=== PATIENT | male | born 1985 | race Caucasian/White ===

== ENCOUNTER → 2017-07-10 11:18 | Outpatient (CLI) | payer BC, SELFPAY ==
--- NOTE | 2017-07-10 11:27 | XR_ITS ---
XR chest 2V HISTORY: ITS.REASON: BRONCHITIS ORDERING PHYSICIAN: Luz Yee PATIENT AGE: 32 years COMPARISON: None available FINDINGS: The cardiomediastinal silhouette and pulmonary vascularity are within normal limits. The lungs are clear without infiltrates, suspicious nodules, or pleural effusions. No acute bony abnormalities. IMPRESSION: Negative chest, no acute finding
== END ==
PROVIDERS: PCP Family Medicine; Visit Provider Nurse Practitioner
DX: J40 Bronchitis, not specified as acute or chronic (principal)
CPT/HCPCS: 71046

== ENCOUNTER → 2020-07-04 17:54 | Outpatient (CLI) | payer OTHER, SELFPAY ==
--- NOTE | 2020-07-04 | XR_ITS ---
PROCEDURE: XR HAND LT MIN 3V CLINICAL INDICATION: COMPARISON: No exams were available for comparison FINDINGS: No fracture or dislocation. No lytic or blastic change. There is normal mineralization. The joint spaces are well-preserved. No significant degenerative/arthritic changes. No erosive changes evident. Other findings:None. IMPRESSION: No acute findings. Dictated by: Michael Gallegos MD 07/04/2020 18:36 Michael Gallegos MD in [place] 07/04/2020 18:36
== END ==
PROVIDERS: PCP Family Medicine; Visit Provider Family Medicine
DX: M79.645 Pain in left finger(s) (principal)
CPT/HCPCS: 73130

== ENCOUNTER → 2022-08-06 23:31 | Outpatient (CLI) | payer OTHER, SELFPAY ==
[2022-08-06 19:37] LABS: Basophils # 0.2 K/mm3 (0-0.2); Basophils % 1.6 % (0.1-2.0); Eosinophils # 0.2 K/mm3 (0.0-0.4); Eosinophils % 2.4 % (0.1-12.0); Hematocrit 44.3 % (42.0-52.0); Lymphocytes # 1.6 K/mm3 (0.7-4.5); Lymphocytes % 16.5 % (10-50); Mean Corpuscular Hemoglobin 30.5 pg (27.0-31.2); Mean Corpuscular Volume 89.6 fl (80-94); Mean Platelet Volume 8.5 fl (7.4-10.4); Monocytes # 0.7 K/mm3 (0.1-1.0); Monocytes % 6.5 % (1.7-9.3); Neutrophils # 7.2 K/mm3 (1.8-7.8); Platelet Count 359 K/mm3 (142-424); Red Blood Count 4.94 M/mm3 (4.60-6.20); Red Cell Distribution Width 13.1 % (11.5-17.5); White Blood Count 9.9 K/mm3 (4.8-10.8)
[2022-08-06 19:39] LABS: Alanine Aminotransferase 30 U/L (12-78); Albumin Level 4.6 g/dl (3.5-5.0); Albumin/Globulin Ratio 1.4 (1.1-1.8); Alkaline Phosphatase 65 U/L (38-126); Anion Gap 9.9 mEq/L (5-15); Aspartate Amino Transferase 38 U/L (17-59); Bilirubin,Total 1.1 mg/dl (0.2-1.3); Blood Urea Nitrogen 11 mg/dl (9-20); Calcium 9.2 mg/dl (8.4-10.2); Carbon Dioxide 25 mmol/L (22.0-30.0); Chloride 108 mmol/L (98-107); Chol/HDL Ratio 5.1 (1-3.5); Cholesterol 215 mg/dl (140-200); Estimated Glomerular Filt Rate 108 ml/min (>60); GFR (African American) 130 ML/MIN (>60); Globulin 3.2 g/dL (1.3-3.2); Glucose 133 mg/dl (74-100); HDL Cholesterol 42 mg/dl (40-60); Potassium 3.9 mmoL/L (3.5-5.1); Sodium 139 mmol/L (136-145); Total Protein,Serum 7.8 g/dl (6.3-8.2); Triglycerides 112 mg/dl (30-150); VLDL Cholesterol 22 mg/dL (0-40)
[2022-08-06 19:50] LABS: Direct LDL Cholesterol 145.58 mg/dL (100-129)
[2022-08-06 19:57] LABS: 25-OH Vitamin D, Total 16.6 ng/mL (30-100)
[2022-08-06 20:10] LABS: Thyroid Stimulating Hormone 0.67 uIU/mL (0.465-4.68)
[2022-08-06 20:13] LABS: Hemoglobin A1C 5.8 % (4.0-6.0)
[2022-08-06 20:29] LABS: Vitamin B12 414 pg/mL (239-931)
== END ==
PROVIDERS: PCP Nurse Practitioner; Visit Provider Nurse Practitioner
DX: F41.9 Anxiety disorder, unspecified (principal); E55.9 Vitamin D deficiency, unspecified; Z79.899 Other long term (current) drug therapy
CPT/HCPCS: 80053; 80061; 82306; 82607; 83036; 84443; 85025

== ENCOUNTER → 2022-09-13 11:51 | Outpatient (CLI) | payer OTHER, SELFPAY | PROVIDERS: PCP Nurse Practitioner; Visit Provider Nurse Practitioner | DX: G47.33 Obstructive sleep apnea (adult) (pediatric) (principal); R40.0 Somnolence; G47.9 Sleep disorder, unspecified | CPT/HCPCS: 95806 ==

== ENCOUNTER → 2022-10-04 14:37 | Outpatient (CLI) | payer OTHER, SELFPAY | PROVIDERS: PCP Nurse Practitioner; Visit Provider Nurse Practitioner | DX: I49.9 Cardiac arrhythmia, unspecified (principal) | CPT/HCPCS: 93225; 93226 ==

== ENCOUNTER → 2022-11-19 19:47 | Outpatient (CLI) | payer OTHER, SELFPAY ==
[2022-11-19 20:28] LABS: Alanine Aminotransferase 26 U/L (12-78); Albumin Level 4.7 g/dl (3.5-5.0); Albumin/Globulin Ratio 1.4 (1.1-1.8); Alkaline Phosphatase 66 U/L (38-126); Anion Gap 19.1 mEq/L (5-15); Aspartate Amino Transferase 37 U/L (17-59); Bilirubin,Total 0.7 mg/dl (0.2-1.3); Blood Urea Nitrogen 19 mg/dl (9-20); Calcium 9.1 mg/dl (8.4-10.2); Carbon Dioxide 26 mmol/L (22.0-30.0); Chloride 100 mmol/L (98-107); Chol/HDL Ratio 6.3 (1-3.5); Cholesterol 297 mg/dl (140-200); Estimated Glomerular Filt Rate 94 ml/min (>60); GFR (African American) 114 ML/MIN (>60); Globulin 3.3 g/dL (1.3-3.2); Glucose 118 mg/dl (74-100); HDL Cholesterol 47 mg/dl (40-60); Potassium 4.1 mmoL/L (3.5-5.1); Sodium 141 mmol/L (136-145); Triglycerides 174 mg/dl (30-150); VLDL Cholesterol 35 mg/dL (0-40)
[2022-11-20 00:10] LABS: Hemoglobin A1C 5.7 % (4.0-6.0)
[2022-11-20 12:22] LABS: Ferritin 101 ng/ml (17.9-464)
== END ==
PROVIDERS: Nurse Practitioner Family; PCP Nurse Practitioner; Visit Provider Nurse Practitioner
DX: E55.9 Vitamin D deficiency, unspecified (principal); E78.5 Hyperlipidemia, unspecified; R73.01 Impaired fasting glucose; E83.10 Disorder of iron metabolism, unspecified
CPT/HCPCS: 80053; 80061; 82306; 82728; 83036

== ENCOUNTER → 2022-11-22 13:02 | Outpatient (CLI) | payer OTHER, SELFPAY | PROVIDERS: PCP Nurse Practitioner; Visit Provider Nurse Practitioner | DX: I49.9 Cardiac arrhythmia, unspecified (principal); R94.31 Abnormal electrocardiogram [ECG] [EKG]; E66.9 Obesity, unspecified; Z68.28 Body mass index [BMI] 28.0-28.9, adult | CPT/HCPCS: 93306 ==

== ENCOUNTER → 2023-03-29 08:04 | Outpatient (CLI) | payer OTHER, SELFPAY ==
[2023-03-29 18:26] LABS: Free T4 (Free Thyroxine) 1.27 ng/dl (0.78-2.19)
[2023-03-29 18:41] LABS: Thyroid Stimulating Hormone 0.95 uIU/mL (0.465-4.68)
== END ==
PROVIDERS: PCP Nurse Practitioner Acute Care; Visit Provider Nurse Practitioner Acute Care
DX: E66.3 Overweight (principal); Z79.899 Other long term (current) drug therapy
CPT/HCPCS: 84439; 84443

== ENCOUNTER 2023-07-18 22:12 | Outpatient (CLI) | payer OTHER, SELFPAY ==
[2023-07-20 10:56] LABS: Rapid Plasma Reagin Ab Titer Non Reactive titer (NonRea<1:1)
[2023-07-20 12:20] LABS: HBsAg Screen Negative (Negative); HCV Ab Non Reactive (Non Reactive); Hep A Ab, IGM Negative (Negative); Hep B Core Ab, IgM Negative (Negative)
[2023-07-21 04:11] LABS: HIV Screen 4th Generation wRfx Non Reactive (Non Reactive)
[2023-07-23 20:56] LABS: Neisseria gonorrhoeae, NAA Negative (Negative)
[2023-07-25 12:07] LABS: HSV 1 IgG, Type Spec <0.91
[2023-07-25 12:10] LABS: HSV 2 IgG, Type Spec <0.91
[2023-07-29 14:33] LABS: Trich vag NAA NEGATIVE
== END 2023-07-18 23:59 ==
LOC: LAB.DROPOF 22:13
PROVIDERS: PCP Nurse Practitioner; Visit Provider Nurse Practitioner
DX: Z11.3 Encounter for screening for infections with a predominantly sexual mode of transmission (principal); Z11.4 Encounter for screening for human immunodeficiency virus [HIV]; Z72.51 High risk heterosexual behavior
CPT/HCPCS: 80074; 86593; 86695; 86703; 86790; 87491; 87591; 87661; G0432

== ENCOUNTER 2023-10-15 10:10 | Outpatient (CLI) | payer OTHER, SELFPAY ==
--- NOTE | 2023-10-15 10:14 | XR_ITS ---
FINAL REPORT CLINICAL HISTORY: lt hand pain x few weeks FINDINGS: Left hand Three views were obtained. There is no acute fracture or dislocation. The joint spaces appear normal. No soft tissue abnormality is identified. IMPRESSION: No acute process. Reviewed, Interpreted and Dictated by Ld De Guzman III, MD Transcribed by Irene Moore Authenticated and . [facility]
== END 2023-10-15 23:59 | disposition home or self-care (01) ==
PROVIDERS: PCP Nurse Practitioner; Visit Provider Orthopaedic Surgery
DX: M79.642 Pain in left hand (principal)
CPT/HCPCS: 73130

== ENCOUNTER 2024-04-17 11:35 | Outpatient (CLI) | payer OTHER, SELFPAY ==
[2024-04-17 21:48] LABS: HIV (1&2) Antibody Rapid NONREACTIVE (NONREACTIVE)
[2024-04-19 08:39] LABS: HBsAg Screen Negative (Negative); HCV Ab Non Reactive (Non Reactive); Hep A Ab, IGM Negative (Negative); Hep B Core Ab, IgM Negative (Negative); Rapid Plasma Reagin Ab Titer Non Reactive titer (NonRea<1:1)
[2024-04-20 20:09] LABS: Neisseria gonorrhoeae, NAA Negative (Negative); Trichomonas Vaginalis, NAA Negative (Negative)
[2024-04-22 07:54] LABS: HSV-1 DNA Negative (Negative); HSV-2 DNA Negative (Negative)
== END 2024-04-17 23:59 | disposition home or self-care (01) ==
LOC: LAB.DROPOF 04-18 09:32
PROVIDERS: PCP Nurse Practitioner; Visit Provider Nurse Practitioner Family
DX: Z11.3 Encounter for screening for infections with a predominantly sexual mode of transmission (principal); E66.3 Overweight; Z91.89 Other specified personal risk factors, not elsewhere classified
CPT/HCPCS: 80074; 86593; 87389; 87491; 87529; 87591; 87661

== ENCOUNTER 2024-07-23 17:05 | Outpatient (CLI) | payer OTHER, SELFPAY ==
--- NOTE | 2024-07-23 17:16 | XR_ITS ---
PROCEDURE INFORMATION: Exam: XR Right Shoulder Exam date and time: 07/23/2024 5:23 PM Age: 39 years old Clinical indication: Pain; Shoulder; Right; Additional info: Right shoulder pain TECHNIQUE: Imaging protocol: Radiologic exam of the right shoulder. Views: 2 or more views. Total images: 2 COMPARISON: No relevant prior studies available. FINDINGS: Bones/joints: Cystic changes noted within the glenoid. No evidence of acute fracture or dislocation. Soft tissues: No soft tissue swelling. IMPRESSION: No evidence of acute fracture or dislocation.
== END 2024-07-23 23:59 | disposition home or self-care (01) ==
LOC: RAD 17:09
PROVIDERS: PCP Nurse Practitioner; Visit Provider Physician Assistant Surgical
DX: M25.511 Pain in right shoulder (principal)
CPT/HCPCS: 73030